=== PATIENT | male | born 1990 | race African-American/Black ===

== ENCOUNTER 2017-08-20 22:17 | Emergency (ER) | payer SELFPAY ==
[~2017-08-20] VITALS: Ht 188 cm; Wt 64.6 kg
[2017-08-20 22:20] VITALS: BP 124/85; PULSE 93; RESP 16; TEMP 98.7; O2SAT 99
[2017-08-20] MEDS ORDERED: PENI500T PO (22:58)
[2017-08-20] MEDS ORDERED: IBUP-232 PO (22:58)
--- NOTE | 2017-08-20 22:58 | PD ---
HPI Chief Complaint: Oral / Dental Pain or Problem Time Seen by Provider: 22:50 Travel History International Travel<30 days: No Contact w/Intl Traveler<30days: No Traveled to known affect area: No History of Present Illness HPI 27-year-old male complains of dental pain. Patient states that he started having toothache about 2 weeks ago. Patient states that he has sharp pain localized to the right side lower gum area. Patient denies any pain radiation. Patient denies any fever chills. PFSH Past Medical History Medical History: Denies Significant Hx Diminished Hearing: No Immunizations Current: Yes Tetanus Vaccination: < 5 Years Influenza Vaccination: No Past Surgical History Surgical History: No Previous Surgery Social History Alcohol Use: Yes (OCC) Tobacco Use: Yes (06/09 PPD) Substance Use: No Allergies-Medications (Allergen,Severity, Reaction): Coded Allergies: No Known Allergies (Unverified , 08/20/17) Review of Systems General / Constitutional: No: Fever Eyes: No: Visual changes HENT: No: Headaches Cardiovascular: No: Chest Pain or Discomfort Respiratory: No: Shortness of Breath Gastrointestinal: No: Abdominal Pain Genitourinary: No: Dysuria Musculoskeletal: No: Pain Skin: No Rash Neurologic: No: Weakness Psychiatric: No: Depression Endocrine: No: Polydipsia Hematologic/Lymphatic: No: Easy Bruising Physical Exam Narrative GENERAL: Well-nourished, well-developed patient. SKIN: Focused skin assessment warm/dry. HEAD: Normocephalic. EYES: No scleral icterus. No injection or drainage. NECK: Supple, trachea midline. No JVD or lymphadenopathy. CARDIOVASCULAR: Regular rate and rhythm without murmurs, gallops, or rubs. RESPIRATORY: Breath sounds equal bilaterally. No accessory muscle use. GASTROINTESTINAL: Abdomen soft, non-tender, nondistended. MUSCULOSKELETAL: No cyanosis, or edema. BACK: Nontender without obvious deformity. No CVA tenderness. Patient has dental caries right lower gum area. No soft tissue swelling noted. Data Data Last Documented VS Vital Signs Date Time Temp Pulse Resp B/P (MAP) Pulse Ox O2 Delivery O2 Flow Rate FiO2 08/20/17 22:20 98.7 93 16 124/85 (98) 99 Orders Orders Acetaminophen (Tylenol) (08/20/17 23:00) Penicillin V Potassium (Veetids) (08/20/17 23:00) MDM Medical Decision Making Medical Screen Exam Complete: Yes Emergency Medical Condition: Yes Differential Diagnosis Differential diagnoses include dental pain, dental abscess. Narrative Course 27-year-old male with dental pain. Patient took ibuprofen prior to arrival. Tylenol 650 g p.o. Pen-Vee K 500 mg p.o. given. Diagnosis Primary Impression: Pain, dental Patient Instructions: General Instructions Additional Instructions: Take medications as directed. Follow-up with a dentist. Med/Other Pt SpecificInfo: Prescription(s) given Scripts Penicillin V Potassium (Penicillin V Potassium) 500 Mg Tab 500 MG PO Q6H for Infection, #40 TAB 0 Refills Prov: Jovi Deal MD 08/20/17 Ibuprofen (Ibuprofen) 600 Mg Tab 600 MG PO TID for Pain, #30 TAB 0 Refills Prov: Jovi Deal MD 08/20/17 Disposition: 01 DISCHARGE HOME Condition: Stable Jovi Deal MD Aug 20, 2017 22:58
[2017-08-20] MEDS ORDERED: ACETAMINOPHEN 325 MG TAB PO ONE (23:00)
[2017-08-20] MEDS ORDERED: PENICILLIN V POTASSIUM 500 MG TAB PO ONE (23:00)
== END 2017-08-20 23:09 | disposition home or self-care (01) ==
LOC: PHED 22:17
DX: K08.89 Other specified disorders of teeth and supporting structures (principal); F17.200 Nicotine dependence, unspecified, uncomplicated
CPT/HCPCS: 99283

== ENCOUNTER 2017-10-12 23:48 | Emergency (ER) | payer SELFPAY ==
[~2017-10-12] VITALS: Ht 188 cm; Wt 64.5 kg
[~2017-10-12 23:48] MED LIST: IBUP-232 PO; PENI500T PO
[2017-10-12 23:52] VITALS: BP 117/78; PULSE 88; RESP 18; TEMP 97.8; O2SAT 100
== END 2017-10-13 01:27 | disposition left against medical advice (07) ==
LOC: PHED 23:48
DX: R11.2 Nausea with vomiting, unspecified (principal); Z53.21 Procedure and treatment not carried out due to patient leaving prior to being seen by health care provider
CPT/HCPCS: 99281